=== PATIENT | male | born 1985 | race African-American/Black ===

== ENCOUNTER 2022-02-02 10:31 | Emergency (ER) | payer SELFPAY ==
[~2022-02-02] VITALS: Ht 175.3 cm; Wt 98.0 kg
[2022-02-02 10:39] VITALS: BP 140/94
[2022-02-02] MEDS ORDERED: BACITRACIN ZINC OINT UDPKT TOP ONE (14:30)
[2022-02-02] MEDS ORDERED: LIDOCAINE HCL/PF 1% 10 MG/ML 5ML VIAL INFIL ONE (14:30)
[2022-02-02] MEDS ORDERED: TETANUS, DIPHTHERIA, PERTUSSIS VAC/PF 0.5ML (>10YR OLD) IM ONE (14:30)
[2022-02-02] MEDS ORDERED: IBUP-2029 PO (16:35)
[2022-02-02] MEDS ORDERED: BO1 TP (16:37)
== END 2022-02-02 16:54 | disposition home or self-care (01) ==
LOC: ER 10:31
DX: S61.207A Unspecified open wound of left little finger without damage to nail, initial encounter (principal); Z87.81 Personal history of (healed) traumatic fracture; Z98.890 Other specified postprocedural states; W22.8XXA Striking against or struck by other objects, initial encounter; Y93.89 Activity, other specified; Y92.018 Other place in single-family (private) house as the place of occurrence of the external cause
CPT/HCPCS: 90471; 90715; 99283; J3490

== ENCOUNTER 2022-02-04 09:22 | Emergency (ER) | payer SELFPAY ==
[~2022-02-04] VITALS: Ht 175.3 cm; Wt 100.0 kg
[~2022-02-04 09:22] MED LIST: BO1 TP; IBUP-2029 PO
[2022-02-04 09:33] VITALS: BP 116/82
== END 2022-02-04 10:50 | disposition home or self-care (01) ==
LOC: ER 09:22
DX: S61.217D Laceration without foreign body of left little finger without damage to nail, subsequent encounter (principal); X58.XXXD Exposure to other specified factors, subsequent encounter
CPT/HCPCS: 99281